=== PATIENT | female | born 1970 | race Caucasian/White ===

== ENCOUNTER 2021-04-19 15:41 | Emergency (ER) | payer OTHER ==
[~2021-04-19] VITALS: Ht 172.7 cm; Wt 54.4 kg
[2021-04-19] MEDS ORDERED: RIVA10TA PO (16:19)
[2021-04-19] MEDS ORDERED: LEVO100T10 PO (16:19)
--- NOTE | 2021-04-19 16:59 | NUR ---
code stroke activated
--- NOTE | 2021-04-19 17:03 | NUR ---
pt to ct.
--- NOTE | 2021-04-19 17:07 | NUR ---
tele neurology activated.
[2021-04-19 17:14] LABS: HEMATOCRIT 31.4 % (31.2-41.9); MEAN CORPUSCULAR HEMOGLOBIN 26.2 uug (24.7-32.8); MEAN CORPUSCULAR VOLUME 80.7 fL (75.5-95.3); PLATELET COUNT (AUTO) 291 K/uL (179-408)
[2021-04-19 17:21] LABS: CREATININE 0.6 mg/dL (0.6-1.3); POTASSIUM 3.5 mmol/L (3.5-5.1)
[2021-04-19] MEDS ORDERED: SWABABLE VALVE TRANSFER SET EA MC ONE (17:23)
[2021-04-19] MEDS ORDERED: IV NORMAL SALINE 250 ML IV ONE (17:23)
[2021-04-19] MEDS ORDERED: IOHEXOL 350 100 ML INFUS..BTL ONE (17:23)
--- NOTE | 2021-04-19 17:31 | NUR ---
Pt back from Ct.
--- NOTE | 2021-04-19 19:00 | NUR ---
insurance authorized the pt to stay here. pt says that she has to take care of some personal affair and cannot stay in hospital if MRI is for sure is not done tonight. Dr. Vale notified.
--- NOTE | 2021-04-19 19:07 | NUR ---
Patient does not wish to proceed with medical care recommended by Dr. Naina quintana ). Patient given information related to possible complications, up to and including , which could occur as a result of leaving the hospital at this time. Patient verbalizes understanding of risks involved due to leaving against medical advice. Patient has signed AMA form.a copy of all the studies was given.
== END 2021-04-19 19:15 | disposition left against medical advice (07) ==
LOC: ER 15:41
DX: I63.9 Cerebral infarction, unspecified (principal); R47.1 Dysarthria and anarthria; R29.702 NIHSS score 2; Z53.29 Procedure and treatment not carried out because of patient's decision for other reasons; Z86.718 Personal history of other venous thrombosis and embolism; Z79.01 Long term (current) use of anticoagulants; E89.0 Postprocedural hypothyroidism; Z79.890 Hormone replacement therapy; R41.82 Altered mental status, unspecified
CPT/HCPCS: 36415; 70450; 70496; 70498; 71045; 80048; 82962; 84484; 85025; 85730; 93005; 99291; Q9967; 70030-TC; A4663; J7050